=== PATIENT | female | born 1970 | race Hispanic/Latino ===

== ENCOUNTER 2016-08-05 15:51 | Emergency (ER) | payer MEDICAID ==
[2016-08-05 17:26] LABS: Basophils % (Auto) 0.7 % (0.0-1.8); Eosinophils % (Auto) 2.1 % (0.0-4.3); Hematocrit 46.1 % (30.3-42.9); Hemoglobin 15.2 gm/dl (10.1-14.3); Mean Corpuscular HGB Conc 33 % (30-34); Mean Corpuscular Hemoglobin 32 pg (28-32); Mean Corpuscular Volume 96 fl (79-97); Platelet Count 376 K/mm3 (140-440); Red Blood Count 4.78 M/mm3 (3.65-5.03); Red Cell Distribution Width 14.6 % (13.2-15.2); White Blood Count 12.6 K/mm3 (4.5-11.0)
[2016-08-05 17:47] LABS: Alanine Aminotransferase 23 units/L (7-56); Albumin 3.9 g/dL (3.9-5); Albumin/Globulin Ratio 1.2 %; Alkaline Phosphatase 93 units/L (35-129); BUN/Creatinine Ratio 5.71; Blood Urea Nitrogen 4 mg/dL (7-17); Calcium 9.2 mg/dL (8.4-10.2); Carbon Dioxide 26 mmol/L (22-30); Glucose 82 mg/dL (65-100); Lipase 17 units/L (13-60); Total Protein 7.1 g/dL (6.3-8.2)
[2016-08-05 17:48] LABS: Anion Gap 18 mmol/L; Chloride 99.6 mmol/L (98-107); Potassium 3.6 mmol/L (3.6-5.0); Sodium 140 mmol/L (137-145)
[2016-08-06 00:10] VITALS: BP 123/78
[2016-08-06] MEDS ORDERED: MORPHINE IM ONE (01:09)
--- NOTE | 2016-08-06 01:12 | Emergency Department Report ---
HPI - General Chief Complaint: Abdominal Pain Time Seen by Provider: 08/06/16 00:53 - HPI HPI: She is a 46-year-old female who presents to ED complaining of upper abdominal pain for the past 3 days. Patient describes pain as throbbing and sharp in nature. Patient states pain is intermittent throughout the day. She denies taking any medication. She admits mild burning with urination. Patient denies fevers/chills/nausea/vomiting/chest pain/shortness of breath/ diarrhea/constipation ED Past Medical Hx - Past Medical History Previous Medical History?: Yes Hx Heart Attack/AMI: Yes (stents x4) Hx Psychiatric Treatment: Yes (bipolar disorder) - Surgical History Past Surgical History?: Yes Additional Surgical History: hysterectomy; radial surgery - Social History Smoking Status: Current Some Day Smoker Substance Use Type: None - Medications Home Medications: Home Medications Medication Instructions Recorded Confirmed Last Taken Type Ibuprofen [Motrin 800 MG tab] 800 mg PO Q8HR PRN #30 tablet 08/06/16 Unknown Rx Mag Hydrox/Al Hydrox/Simeth 15 ml PO TID #355 ml 08/06/16 Unknown Rx [Maalox Advanced Suspension] Sulfamethoxazole/Trimethoprim 1 each PO BID #10 tablet 08/06/16 Unknown Rx [Bactrim DS TAB] ED Review of Systems ROS: Stated complaint: LT SIDE PAIN/ABD PAIN Other details as noted in HPI Constitutional: denies: chills, fever Eyes: denies: eye pain, eye discharge, vision change ENT: denies: ear pain, throat pain Respiratory: denies: cough, shortness of breath, wheezing Cardiovascular: denies: chest pain, palpitations Endocrine: no symptoms reported Gastrointestinal: denies: abdominal pain, nausea, diarrhea Genitourinary: denies: urgency, dysuria, discharge Musculoskeletal: denies: back pain, joint swelling, arthralgia Skin: denies: rash, lesions Neurological: denies: headache, weakness, paresthesias Psychiatric: denies: anxiety, depression Hematological/Lymphatic: denies: easy bleeding, easy bruising Physical Exam - Physical Exam Vital Signs: Vital Signs 08/05/16 08/05/16 08/06/16 17:05 23:37 00:08 Temperature 97.9 F 98.8 F Pulse Rate 70 80 Respiratory 16 20 20 Rate Blood Pressure 125/79 Blood Pressure 123/78 [Left] O2 Sat by Pulse 100 98 99 Oximetry Physical Exam: GENERAL: Alert and oriented x3, no apparent distress, Normal Gait, atraumatic. HEAD: Head is normocephalic and a-traumatic. EYES: Extra ocular muscles are intact. Pupils are equal, round, and reactive to light and accommodation. LUNGS: Symetrical with respiration, No wheezing, no rales or crackles, CTAB. HEART: S1, S2 present, regular rate and rhythm without murmur, no rubs, no gallops. Non tender to palpation ABDOMEN: No organomegaly was noted,Positive bowel sounds, soft, and non- distended. Tenderness to palpation of right and left upper quadrant. Nontender to palpation on all other Quadrants, NO CVA tenderness. SKIN: Warm and dry, No lesions, No ulceration or induration present. ED Course Vital Signs 08/05/16 08/05/16 08/06/16 17:05 23:37 00:08 Temperature 97.9 F 98.8 F Pulse Rate 70 80 Respiratory 16 20 20 Rate Blood Pressure 125/79 Blood Pressure 123/78 [Left] O2 Sat by Pulse 100 98 99 Oximetry ED Medical Decision Making - Lab Data Result diagrams: 08/05/16 17:14 08/05/16 17:14 - Radiology Data Radiology results: report reviewed, image reviewed FINAL REPORT PROCEDURE: US ABDOMEN COMPLETE TECHNIQUE: Real-time sonography in multiple planes of the abdomen was performed with image documentation. CPT 57383 HISTORY: Upper Quad abd pain COMPARISON: No prior studies are available for comparison. FINDINGS: Liver: Normal size and echotexture with no evidence of cystic or solid mass lesions. Gallbladder: Fluid filled. No gallstones, wall thickening, pericholecystic fluid, or sonographic Salazar's sign. Intrahepatic bile ducts: Normal caliber . Extrahepatic bile ducts: Normal caliber. Pancreas: Normal as visualized with suboptimal depiction of the pancreatic tail. Aorta: Visualized portions appear normal. IVC: Visualized portions appear normal. RIGHT kidney: Normal echotexture. No focal renal mass, calculus, or hydronephrosis. Length: 9.9cm. LEFT kidney: Normal echotexture. No focal renal mass, calculus, or hydronephrosis . Length: 10.3cm. Spleen: Normal size and echotexture. No focal lesions. Intraperitoneal fluid: None . Other: None . IMPRESSION: Normal Examination. Transcribed By: [facility] Dictated By: XIOMARA HDEZ MD Electronically Authenticated By: XIOMARA HDEZ MD Signed Date/Time: 08/06/16 0201 - Medical Decision Making 46-year-old female presents with gastroenteritis/abdominal pain of unknown origin ED course: Patient received 4 mg of morphine. Urinalysis, CBC, CMP, abdominal ultrasound ordered Urinalysis positive for hyaline casts and epithelial cells. We'll treat with antibiotics. CBC SHOWS MILD LEUKOCYTOSIS CMP, abdominal ultrasound on normal no acute findings. Discussed patient to keep her appointment for Sunday to see her Primary care Her vital signs are normal patient is in no acute distress patient reports much better. Discussed with patient that if worsening symptoms or new symptoms arise to return to ED. Discussed the medications prescribed. The patient is alert and oriented 3 she understands instructions given resting comfortably. Critical care attestation.: If time is entered above; I have spent that time in minutes in the direct care of this critically ill patient, excluding procedure time. ED Disposition Clinical Impression: Abdominal pain Qualifiers: Abdominal location: left upper quadrant Qualified Code(s): R10.12 - Left upper quadrant pain Disposition: TO HOME OR SELFCARE Is pt being admited?: No Does the pt Need Aspirin: No Condition: Stable Instructions: Soft Diet (ED), Regular Diet (ED), Abdominal Pain (ED) Additional Instructions: Keep your appointment with your primary care physician for Sunday. Soft diet Prescriptions: Ibuprofen [Motrin 800 MG tab] 800 mg PO Q8HR PRN #30 tablet PRN Reason: Pain Mag Hydrox/Al Hydrox/Simeth [Maalox Advanced Suspension] 15 ml PO TID #355 ml Sulfamethoxazole/Trimethoprim [Bactrim DS TAB] 1 each PO BID #10 tablet Referrals: PRIMARY CAREMD [Primary Care Provider] - 3-5 Days HORACIO TELLEZ MD [Referring] - 3-[address] [facility] [Outside] - 3-5 Days [facility] [Outside] - 3-5 Days [facility] [Outside] - 3-5 Days [facility] [Outside] - 3-5 Days Forms: Accompanied Note, Work/School Release Form(ED) Time of Disposition: 02:49
[2016-08-06 01:28] LABS: Bilirubin,Urine NEG (Negative); Blood,Urine NEG (Negative); Ketones,Urine NEG (Negative); Leukocyte Esterase,Urine NEG (Negative); Mucus,Urine 3+ /HPF; Nitrite,Urine NEG (Negative); Protein,Urine <15 mg/dL mg/dL (Negative); Urobilinogen,Urine < 2.0 mg/dL (<2.0)
--- NOTE | 2016-08-06 02:06 | Ultrasound Report ---
FINAL REPORT PROCEDURE: US ABDOMEN COMPLETE TECHNIQUE: Real-time sonography in multiple planes of the abdomen was performed with image documentation. CPT 66236 HISTORY: Upper Quad abd pain COMPARISON: No prior studies are available for comparison. FINDINGS: Liver: Normal size and echotexture with no evidence of cystic or solid mass lesions. Gallbladder: Fluid filled. No gallstones, wall thickening, pericholecystic fluid, or sonographic Salazar's sign. Intrahepatic bile ducts: Normal caliber . Extrahepatic bile ducts: Normal caliber. Pancreas: Normal as visualized with suboptimal depiction of the pancreatic tail. Aorta: Visualized portions appear normal. IVC: Visualized portions appear normal. RIGHT kidney: Normal echotexture. No focal renal mass, calculus, or hydronephrosis. Length: 9.9cm. LEFT kidney: Normal echotexture. No focal renal mass, calculus, or hydronephrosis . Length: 10.3cm. Spleen: Normal size and echotexture. No focal lesions. Intraperitoneal fluid: None . Other: None . IMPRESSION: Normal Examination.
== END 2016-08-06 03:00 | disposition home or self-care (01) ==
LOC: ED 15:51
DX: R10.12 Left upper quadrant pain (principal); I25.2 Old myocardial infarction; F31.9 Bipolar disorder, unspecified; F17.200 Nicotine dependence, unspecified, uncomplicated; Z90.710 Acquired absence of both cervix and uterus; Z91.048 Other nonmedicinal substance allergy status; Z88.8 Allergy status to other drugs, medicaments and biological substances
CPT/HCPCS: 36415; 76700; 80053; 81001; 83690; 85025; 96372; 99284; J2270

== ENCOUNTER 2016-08-08 19:30 | Emergency (ER) | payer MEDICAID ==
[2016-08-08 20:13] LABS: Urine Drugs of Abuse Note Disclamer
[2016-08-08 20:34] LABS: Basophils % (Auto) 0.3 % (0.0-1.8); Eosinophils % (Auto) 3.8 % (0.0-4.3); Hematocrit 44.4 % (30.3-42.9); Hemoglobin 14.7 gm/dl (10.1-14.3); Mean Corpuscular HGB Conc 33 % (30-34); Mean Corpuscular Hemoglobin 32 pg (28-32); Mean Corpuscular Volume 96 fl (79-97); Platelet Count 398 K/mm3 (140-440); Red Cell Distribution Width 14.9 % (13.2-15.2); White Blood Count 14.7 K/mm3 (4.5-11.0)
[2016-08-08 20:38] LABS: Bilirubin,Urine NEG (Negative); Blood,Urine NEG (Negative); Ketones,Urine NEG (Negative); Leukocyte Esterase,Urine NEG (Negative); Mucus,Urine 3+ /HPF; Nitrite,Urine NEG (Negative); Protein,Urine <15 mg/dL mg/dL (Negative); Urobilinogen,Urine < 2.0 mg/dL (<2.0)
[2016-08-08 20:47] LABS: Anion Gap 19 mmol/L; Blood Urea Nitrogen 10 mg/dL (7-17); Calcium 8.9 mg/dL (8.4-10.2); Carbon Dioxide 24 mmol/L (22-30); Chloride 101.8 mmol/L (98-107); Glucose 109 mg/dL (65-100); Potassium 3.3 mmol/L (3.6-5.0); Sodium 141 mmol/L (137-145)
[2016-08-08] MEDS ORDERED: XANAX PO ONE (20:55)
--- NOTE | 2016-08-08 20:55 | Emergency Department Report ---
ED Psych HPI - General Chief Complaint: Psych Stated Complaint: MH Time Seen by Provider: 08/08/16 20:41 Source: patient Mode of arrival: Ambulatory - History of Present Illness Initial Comments: 46 year old female with past medical history of cardiac stent 4 and bipolar disorder presents to the hospital complains of suicidal ideation and medication noncompliance. Patient states she has been out on her menstrual past 3 days because she missed her doctor's appointment. She is feeling really paranoid and feels like everyone is out to get her. She's also complains of auditory and visual hallucinations and increasing her anxiety and panic attacks. Patient chronically takes Xanax 1 mg 3 times a day in addition to other psychiatric medications. She was last seen here on August 05 for abdominal pain by Dr. Jones. Patient complaining the right upper quadrant pain that time. She had unremarkable labs except for mild leukocytosis and a normal abdominal ultrasound. Patient was discharged on Bactrim to cover for UTI and states she has been compliant with medication. She continues to have right upper quadrant , right lower quadrant abdominal pain radiating to the back. No complains of fever, nausea, vomiting, or diarrhea. Patient has had previous hysterectomy. - Related Data Home Medications Medication Instructions Recorded Confirmed Last Taken ALPRAZolam [Xanax TAB] 1 mg PO TID PRN 08/08/16 08/08/16 Unknown Paroxetine HCl [Paxil] 40 mg PO QHS 08/08/16 08/08/16 Unknown QUEtiapine [SEROquel] 600 mg PO QHS 08/08/16 08/08/16 Unknown Trazodone HCl [traZODone] 150 mg PO QHS 08/08/16 08/08/16 Unknown Allergies Allergy/AdvReac Type Severity Reaction Status Date / Time Iodinated Contrast Media - Allergy Unknown Verified 08/08/16 19:37 IV Dye nitroglycerin Allergy Hives Verified 08/05/16 17:05 ketorolac tromethamine AdvReac Hives Verified 08/08/16 19:37 [From Toradol] ED Review of Systems ROS: Stated complaint: MH Other details as noted in HPI Comment: All other systems reviewed and negative Other: Constitutional: No fevers chills Eyes: No eye pain visual changes ENT: No ear pain or throat pain Neck: Denies pain Respiratory: Denies cough wheezing shortness of breath Cardiovascular: Denies chest pain, palpitations, syncope GI: Per HPI : Mild dysuria Musculoskeletal: pain radiates to the back Skin: Denies rash, lesions, erythema Neurologic: Denies headache, numbness, weakness Psychiatric: Denies suicidal ideation, hallucinations ED Past Medical Hx - Past Medical History Hx Heart Attack/AMI: Yes (stents x4) Hx Psychiatric Treatment: Yes (bipolar disorder) - Surgical History Additional Surgical History: hysterectomy; radial surgery - Social History Smoking Status: Current Every Day Smoker Substance Use Type: None - Medications Home Medications: Home Medications Medication Instructions Recorded Confirmed Last Taken Type ALPRAZolam [Xanax TAB] 1 mg PO TID PRN 08/08/16 08/08/16 Unknown History Paroxetine HCl [Paxil] 40 mg PO QHS 08/08/16 08/08/16 Unknown History QUEtiapine [SEROquel] 600 mg PO QHS 08/08/16 08/08/16 Unknown History Trazodone HCl [traZODone] 150 mg PO QHS 08/08/16 08/08/16 Unknown History ED Physical Exam - General Limitations: No Limitations - Other Other exam information: General: No limitations, patient is alert in no acute distress Head exam: Atraumatic, normocephalic Eyes exam: Normal appearance ENT: Moist mucous membrane, normal oropharynx Neck exam: Normal inspection, full range of motion Respiratory exam: Clear to auscultation bilateral, no wheezes, rales, crackles Cardiovascular: Normal rate and rhythm, normal heart sounds Abdomen: Soft, nondistended, lower quadrant, right upper quadrant tenderness to palpation no rebound or guarding Extremity: Full range of motion normal inspection no deformity Back: Normal Inspection, full range of motion, no tenderness Neurologic: Alert, oriented x3, cranial nerves intact, no motor or sensory deficit Psychiatric: Depressed affect Skin: Warm, dry, intact ED Course Vital Signs 08/08/16 19:34 Temperature 98.5 F Pulse Rate 104 H Respiratory 20 Rate Blood Pressure 135/88 O2 Sat by Pulse 95 Oximetry ED Medical Decision Making - Lab Data Result diagrams: 08/08/16 20:16 08/08/16 20:16 Lab Results 08/08/16 08/08/16 08/08/16 Range/Units 19:40 19:40 20:16 WBC (4.5-11.0) K/mm3 RBC (3.65-5.03) M/mm3 Hgb (10.1-14.3) gm/dl Hct (30.3-42.9) % MCV (79-97) fl MCH (28-32) pg MCHC (30-34) % RDW (13.2-15.2) % Plt Count (140-440) K/mm3 Lymph % (Auto) (13.4-35.0) % [place] % (Auto) (0.0-7.3) % Eos % (Auto) (0.0-4.3) % Baso % (Auto) (0.0-1.8) % Lymph # (1.2-5.4) K/mm3 [place] # (0.0-0.8) K/mm3 Eos # (0.0-0.4) K/mm3 Baso # (0.0-0.1) K/mm3 Seg Neutrophils % (40.0-70.0) % Seg Neutrophils # (1.8-7.7) K/mm3 Sodium 141 (137-145) mmol/L Potassium 3.3 L (3.6-5.0) mmol/L Chloride 101.8 (98-107) mmol/L Carbon Dioxide 24 (22-30) mmol/L Anion Gap 19 mmol/L BUN 10 (7-17) mg/dL Creatinine 0.8 (0.7-1.2) mg/dL Estimated GFR > 60 ml/min BUN/Creatinine Ratio 12.50 % Glucose 109 H (65-100) mg/dL Calcium 8.9 (8.4-10.2) mg/dL Total Bilirubin (0.1-1.2) mg/dL Direct Bilirubin (0-0.2) mg/dL Indirect Bilirubin mg/dL AST (5-40) units/L ALT (7-56) units/L Alkaline Phosphatase (35-129) units/L Total Protein (6.3-8.2) g/dL Albumin (3.9-5) g/dL Albumin/Globulin Ratio % Lipase (13-60) units/L Urine Color Yellow (Yellow) Urine Turbidity Slightly-cloudy (Clear) Urine pH 5.0 (5.0-7.0) Ur Specific [place] 1.021 (1.003-1.030) Urine Protein <15 mg/dl (Negative) mg/dL Urine Glucose (UA) Neg (Negative) mg/dL Urine Ketones Neg (Negative) mg/dL Urine Blood Neg (Negative) Urine Nitrite Neg (Negative) Ur Reducing Substances Not Reportable Urine Bilirubin Neg (Negative) Urine Ictotest Not Reportable Urine Urobilinogen < 2.0 (<2.0) mg/dL Ur Leukocyte Esterase Neg (Negative) Urine WBC (Auto) 4.0 (0.0-6.0) /HPF Urine RBC (Auto) 4.0 (0.0-6.0) /HPF U Epithel Cells (Auto) 15.0 H (0-13.0) /HPF Urine Mucus 3+ /HPF Urine Opiates Screen Presumptive negative Urine Methadone Screen Presumptive negative Ur Barbiturates Screen Presumptive positive Ur Phencyclidine Scrn Presumptive negative Ur Amphetamines Screen Presumptive negative U Benzodiazepines Scrn Presumptive positive Urine Cocaine Screen Presumptive negative U Marijuana (THC) Screen Presumptive negative Drugs of Abuse Note Disclamer Plasma/Serum Alcohol (0-0.07) gm% 08/08/16 08/08/16 08/08/16 Range/Units 20:16 20:16 20:48 WBC 14.7 H (4.5-11.0) K/mm3 RBC 4.60 (3.65-5.03) M/mm3 Hgb 14.7 H (10.1-14.3) gm/dl Hct 44.4 H (30.3-42.9) % MCV 96 (79-97) fl MCH 32 (28-32) pg MCHC 33 (30-34) % RDW 14.9 (13.2-15.2) % Plt Count 398 (140-440) K/mm3 Lymph % (Auto) 22.4 (13.4-35.0) % [place] % (Auto) 7.6 H (0.0-7.3) % Eos % (Auto) 3.8 (0.0-4.3) % Baso % (Auto) 0.3 (0.0-1.8) % Lymph # 3.3 (1.2-5.4) K/mm3 [place] # 1.1 H (0.0-0.8) K/mm3 Eos # 0.6 H (0.0-0.4) K/mm3 Baso # 0.0 (0.0-0.1) K/mm3 Seg Neutrophils % 65.9 (40.0-70.0) % Seg Neutrophils # 9.7 H (1.8-7.7) K/mm3 Sodium (137-145) mmol/L Potassium (3.6-5.0) mmol/L Chloride (98-107) mmol/L Carbon Dioxide (22-30) mmol/L Anion Gap mmol/L BUN (7-17) mg/dL Creatinine (0.7-1.2) mg/dL Estimated GFR ml/min BUN/Creatinine Ratio % Glucose (65-100) mg/dL Calcium (8.4-10.2) mg/dL Total Bilirubin 0.20 (0.1-1.2) mg/dL Direct Bilirubin < 0.2 (0-0.2) mg/dL Indirect Bilirubin 0.0 mg/dL AST 14 (5-40) units/L ALT 19 (7-56) units/L Alkaline Phosphatase 79 (35-129) units/L Total Protein 7.2 (6.3-8.2) g/dL Albumin 4.1 (3.9-5) g/dL Albumin/Globulin Ratio 1.3 % Lipase 24 (13-60) units/L Urine Color (Yellow) Urine Turbidity (Clear) Urine pH (5.0-7.0) Ur Specific [place] (1.003-1.030) Urine Protein (Negative) mg/dL Urine Glucose (UA) (Negative) mg/dL Urine Ketones (Negative) mg/dL Urine Blood (Negative) Urine Nitrite (Negative) Ur Reducing Substances Urine Bilirubin (Negative) Urine Ictotest Urine Urobilinogen (<2.0) mg/dL Ur Leukocyte Esterase (Negative) Urine WBC (Auto) (0.0-6.0) /HPF Urine RBC (Auto) (0.0-6.0) /HPF U Epithel Cells (Auto) (0-13.0) /HPF Urine Mucus /HPF Urine Opiates Screen Urine Methadone Screen Ur Barbiturates Screen Ur Phencyclidine Scrn Ur Amphetamines Screen U Benzodiazepines Scrn Urine Cocaine Screen U Marijuana (THC) Screen Drugs of Abuse Note Plasma/Serum Alcohol < 0.01 (0-0.07) gm% - Radiology Data Radiology results: report reviewed CT abdomen and pelvis noncontrast: Fatty infiltration of the labia and mild hepatomegaly. Nonobstructive right renal calculus. Multi septated right ovarian cyst measuring 4.5 cm. Fat-containing anterior abdominal wall hernia. Transvaginal and pelvic ultrasound: Right ovarian cyst 3.9 cm. Left ovary not visualized. Uterus removed. - Medical Decision Making CT, recent abdominal ultrasound, and transvaginal/pelvic ultrasound did not reveal any acute infectious or surgical emergency. Incidental findings as noted. Will continue patient's Bactrim until completion. Will continue patient 's home psych meds. 1013 and transferred form signed for transfer. - Differential Diagnosis anxiety, depression, medication noncompliance, biliary colic, UTI Critical Care Time: No Critical care attestation.: If time is entered above; I have spent that time in minutes in the direct care of this critically ill patient, excluding procedure time. ED Disposition Clinical Impression: Suicidal ideation, Bipolar disorder, Paranoid, Psychoses, Noncompliance with medication regimen, Right ovarian cyst, Medical clearance for psychiatric admission Disposition: DC/TX-65 PSY HOSP/PSY UNIT Is pt being admited?: No Does the pt Need Aspirin: No Condition: Stable Time of Disposition: 02:56 (awaiting acceptance)
[2016-08-08 21:07] LABS: Alanine Aminotransferase 19 units/L (7-56); Albumin 4.1 g/dL (3.9-5); Albumin/Globulin Ratio 1.3 %; Alkaline Phosphatase 79 units/L (35-129); Lipase 24 units/L (13-60); Total Protein 7.2 g/dL (6.3-8.2)
[2016-08-08 21:22] LABS: Bilirubin,Direct < 0.2 mg/dL (0-0.2)
[2016-08-08] MEDS ORDERED: XANAX PO PRN (22:49)
[2016-08-08] MEDS ORDERED: K-DUR PO ONE (22:49)
[2016-08-08] MEDS ORDERED: PAXIL PO ONE (22:51)
[2016-08-08] MEDS ORDERED: DESYREL PO ONE (22:51)
--- NOTE | 2016-08-08 23:15 | Cat Scan Report ---
FINAL REPORT PROCEDURE: CT ABDOMEN PELVIS WO CON TECHNIQUE: Computerized axial tomography of the abdomen and pelvis was performed without intravenous contrast. This study is performed without intravascular contrast material and its sensitivity for abdominal and pelvic pathology, including neoplasms, inflammation, abscess, free fluid, thrombosis, arterial dissection and infarction, is reduced compared with a contrast enhanced study. HISTORY: ruq, rlq abd pain COMPARISON: No prior studies are available for comparison. FINDINGS: Visualized lower thorax: Thin-walled cyst in the posterior left lung base. Liver: Diffuse low attenuation of the liver is compatible with fatty infiltration. Liver measures 20 centimeters craniocaudal. Spleen: Normal size and attenuation. Gallbladder and biliary system: Gallbladder is present. No biliary ductal dilatation is identified. Pancreas: Normal. Adrenals: Normal. Kidneys: 3 millimeter nonobstructive calculus in the right kidney midpole. No hydronephrosis or ureteral calculi identified bilaterally. GI tract: The appendix is visualized and does not appear inflamed. There is no bowel obstruction or acute inflammation is seen. Lymph nodes and mesentery: Normal. Vasculature: Normal. Bladder: Normal. Reproductive organs: Uterus is not visualized. There is a multi septated right ovarian cystic mass, which measures up to 4.5 centimeters. Peritoneum: No free fluid. Musculoskeletal structures: No significant abnormality. Other: There is a fat containing lower anterior abdominal wall hernia, whose neck measures 19 millimeters transverse. IMPRESSION: Fatty infiltration of the liver and mild hepatomegaly. Nonobstructive right renal calculus. Multi septated right ovarian cyst, which measures up to 4.5 centimeters. Recommend follow-up with ultrasound to evaluate for solid components. Fat containing anterior abdominal wall hernia.
--- NOTE | 2016-08-09 01:44 | Ultrasound Report ---
FINAL REPORT PROCEDURE: US TRANSVAGINAL TECHNIQUE: Real-time transabdominal sonography in multiple planes of the pelvis was performed. The pelvic structures, especially the ovaries were not optimally visualized. Transvaginal sonography was then performed to better evaluate the structures and/or abnormalities described below with image documentation. CPT 83584 and 73022 HISTORY: r ovarian cyst COMPARISON: No prior studies are available for comparison. FINDINGS: The uterus has been removed. Right ovary size is 4.5 x 3 x 3.5 centimeters. There is a dominant cyst on the right ovary this measures 3.9 centimeters. The left ovary is not visualized on this study. No fluid in the lower pelvis. IMPRESSION: There is a cyst on the right ovary this measures up to 3.9 centimeters. The left ovary is not visualized on this study. The uterus has been removed.
--- NOTE | 2016-08-09 01:45 | Ultrasound Report ---
FINAL REPORT PROCEDURE: Ultrasound pelvis, transabdominal and transvaginal TECHNIQUE: Real-time transabdominal sonography in multiple planes of the pelvis was performed. The pelvic structures, especially the ovaries were not optimally visualized. Transvaginal sonography was then performed to better evaluate the structures and/or abnormalities described below with image documentation. CPT 87157 and 56017 HISTORY: r ovarian cyst COMPARISON: No prior studies are available for comparison. FINDINGS: The uterus has been removed. Right ovary size is 4.5 x 3 x 3.5 centimeters. There is a dominant cyst on the right ovary this measures 3.9 centimeters. The left ovary is not visualized on this study. No fluid in the lower pelvis. IMPRESSION: There is a cyst on the right ovary this measures up to 3.9 centimeters. The left ovary is not visualized on this study. The uterus has been removed.
[2016-08-09] MEDS ORDERED: K-DUR PO ONE (02:21)
[2016-08-09] MEDS ORDERED: DESYREL PO ONE (02:22)
[2016-08-09 07:47] VITALS: BP 144/83
[2016-08-09] MEDS ORDERED: BACTRIM DS PO SCH (10:00)
--- NOTE | 2016-08-09 16:44 | Consultation ---
History of Present Illness - Reason for Consult Consult date: 08/09/16 Reason for consult: follow up - Chief Complaint Chief complaint: "I need to sleep" 46 year old female seen in the ER for psychiatric evaluation. She presents complaining of suicidal ideation without plan past 4 days.Pt has history of Bipolar disorder with prior suicide attempt and recent hospitalization at [facility] 1 month ago. She ran out of medication 3 days ago. She endorses recent AVH and paranoia but states she wants to sleep and declines to speak further. Pt states that she would likely attempt to harm self if she does not receive help. Medications and Allergies Allergies Allergy/AdvReac Type Severity Reaction Status Date / Time Iodinated Contrast Media - Allergy Unknown Verified 08/08/16 19:37 IV Dye nitroglycerin Allergy Hives Verified 08/05/16 17:05 ketorolac tromethamine AdvReac Hives Verified 08/08/16 19:37 [From Toradol] Home Medications Medication Instructions Recorded Confirmed Last Taken Type ALPRAZolam [Xanax TAB] 1 mg PO TID PRN 08/08/16 08/08/16 Unknown History Paroxetine HCl [Paxil] 40 mg PO QHS 08/08/16 08/08/16 Unknown History QUEtiapine [SEROquel] 600 mg PO QHS 08/08/16 08/08/16 Unknown History Trazodone HCl [traZODone] 150 mg PO QHS 08/08/16 08/08/16 Unknown History Active Meds: Active Medications Alprazolam (Xanax) 1 mg PO TID PRN PRN Reason: Anxiety Paroxetine HCl (Paxil) 40 mg PO QHS [facility] Quetiapine Fumarate (Seroquel) 600 mg PO QHS [facility] Trazodone HCl (Desyrel) 150 mg PO QHS [facility] Trimethoprim/Sulfamethoxazole (Bactrim Ds) 1 each PO Q12HR [facility] Stop: 08/10/16 22:01 Last Admin: 08/09/16 10:10 Dose: 1 each Past psychiatric history - Past Medical History Past Medical History: other (obesity) - past Psychiatric treatment and history psychiatric treatment history: see HPI - Social History Social history: other (declines to discuss) Mental Status Exam - Vital signs Last Vital Signs Temp 98.0 F 08/09/16 07:46 Pulse 103 H 08/09/16 07:46 Resp 20 08/09/16 07:47 BP 144/83 08/09/16 07:46 Pulse Ox 100 08/09/16 07:47 - Exam Orientation: time, place, person Affect: depressed Mood: congruent with affect Thought content: paranoia, other (SI, no HI) Perceptions: auditory Speech: normal rate and pattern Concentration: unable to pay attention Motor activity: normal Level of consciousness: alert Memory: Intact Sleep Symptoms: Difficulty Falling Asleep Appetite: decreased Interaction: cooperative Results Result Diagrams: 08/08/16 20:16 08/08/16 20:16 Abnormal lab results 08/08/16 08/08/16 08/08/16 Range/Units 19:40 20:16 20:16 WBC 14.7 H (4.5-11.0) K/mm3 Hgb 14.7 H (10.1-14.3) gm/dl Hct 44.4 H (30.3-42.9) % [place] % (Auto) 7.6 H (0.0-7.3) % [place] # 1.1 H (0.0-0.8) K/mm3 Eos # 0.6 H (0.0-0.4) K/mm3 Seg Neutrophils # 9.7 H (1.8-7.7) K/mm3 Potassium 3.3 L (3.6-5.0) mmol/L Glucose 109 H (65-100) mg/dL U Epithel Cells (Auto) 15.0 H (0-13.0) /HPF All other labs normal. Assessment and Plan Assessment and plan: Impression: Suicidal ideation Bipolar disorder, cannot rule out mixed episode Recommendation: 1013 due to suicidal ideation. Refer for inpatient stabilization once cleared medically. Trazodone, seroquel, and xanax were restarted for her prior to this evaluation.
[2016-08-09] MEDS ORDERED: DESYREL PO SCH (22:00)
[2016-08-09] MEDS ORDERED: PAXIL PO SCH (22:00)
== END 2016-08-09 17:22 ==
LOC: EEVIPCON 19:30 → ED 19:30
DX: F31.9 Bipolar disorder, unspecified (principal); F22 Delusional disorders; N83.201 Unspecified ovarian cyst, right side; I25.2 Old myocardial infarction; F17.210 Nicotine dependence, cigarettes, uncomplicated; Z91.14 Patient's other noncompliance with medication regimen; Z91.041 Radiographic dye allergy status
CPT/HCPCS: 36415; 74176; 76830; 76856; 80048; 80074; 80307; 81001; 81025; 83690; 85025; 99285; G0480; 80320

== ENCOUNTER 2016-11-01 18:05 | Emergency (ER) | payer MEDICAID ==
[2016-11-01 20:03] VITALS: BP 143/85
== END 2016-11-01 20:45 | disposition left against medical advice (07) ==
LOC: ED 18:05
DX: M54.9 Dorsalgia, unspecified (principal); Z53.21 Procedure and treatment not carried out due to patient leaving prior to being seen by health care provider

== ENCOUNTER 2017-05-26 14:13 | Emergency (ER) | payer MEDICAID ==
[2017-05-26 16:01] LABS: Bacteria,Urine 1+ /HPF (Negative); Bilirubin,Urine NEG (Negative); Blood,Urine NEG (Negative); Color,Urine Yellow (Yellow); Protein,Urine <15 mg/dL mg/dL (Negative); Urobilinogen,Urine < 2.0 mg/dL (<2.0)
[2017-05-26 16:07] LABS: Amphetamine Screen,Urine PRESUMPTIVE NEGATIVE; Benzodiazepines Screen,Urine PRESUMPTIVE NEGATIVE; Cannabinoid Screen,Urine PRESUMPTIVE NEGATIVE; Cocaine Screen,Urine PRESUMPTIVE NEGATIVE; Methadone Screen,Urine PRESUMPTIVE NEGATIVE; Opiate Screen,Urine PRESUMPTIVE NEGATIVE
[2017-05-26 16:08] LABS: Basophils # (Auto) 0.1 K/mm3 (0.0-0.1); Basophils % (Auto) 0.9 % (0.0-1.8); Eosinophils # (Auto) 0.2 K/mm3 (0.0-0.4); Eosinophils % (Auto) 1.4 % (0.0-4.3); Hematocrit 46.2 % (30.3-42.9); Hemoglobin 15.3 gm/dl (10.1-14.3); Lymphocytes # (Auto) 2.7 K/mm3 (1.2-5.4); Lymphocytes % (Auto) 21.9 % (13.4-35.0); Mean Corpuscular HGB Conc 33 % (30-34); Mean Corpuscular Hemoglobin 33 pg (28-32); Mean Corpuscular Volume 99 fl (79-97); Monocytes # (Auto) 0.7 K/mm3 (0.0-0.8); Monocytes % (Auto) 5.7 % (0.0-7.3); Platelet Count 373 K/mm3 (140-440); Red Blood Count 4.68 M/mm3 (3.65-5.03); Red Cell Distribution Width 14.1 % (13.2-15.2)
--- NOTE | 2017-05-26 16:09 | Emergency Department Report ---
HPI - General Chief Complaint: Psych Time Seen by Provider: 05/26/17 15:46 - HPI HPI: Room 8 The patient is a 47-year-old female presenting with the chief complaint of suicidal ideation. The patient states she's felt suicidal for the past 2 days secondary to frequent "mental abuse." The patient states she didn't feeling "low and down." The patient states she has not had a plan or actively attempted to harm herself. The patient states 3-4 years ago she did attempt to cut her wrists. Location: Mental state Duration: 2 days Quality: Suicidal Severity: Severe Modifying factors: [see above] Context: [see above] Mode of transportation: [not driving] ED Past Medical Hx - Past Medical History Hx Heart Attack/AMI: Yes (stents x4) Hx Psychiatric Treatment: Yes (bipolar disorder) - Surgical History Past Surgical History?: No Additional Surgical History: hysterectomy - Family History Family history: no significant - Social History Smoking Status: Current Every Day Smoker (1/3 pack per day) Substance Use Type: None (denies illicit drug use) - Medications Home Medications: Home Medications Medication Instructions Recorded Confirmed Last Taken Type ALPRAZolam [Xanax TAB] 1 mg PO TID PRN 08/08/16 08/08/16 Unknown History Paroxetine HCl [Paxil] 40 mg PO QHS 08/08/16 08/08/16 Unknown History QUEtiapine [SEROquel] 600 mg PO QHS 08/08/16 08/08/16 Unknown History Trazodone HCl [traZODone] 150 mg PO QHS 08/08/16 08/08/16 Unknown History ED Review of Systems ROS: Stated complaint: SUICIDE THOUGHTS Other details as noted in HPI Psychiatric: anxiety, depression, suicidal thoughts Physical Exam - Physical Exam Vital Signs: Vital Signs 05/26/17 15:29 Temperature 98.1 F Pulse Rate 64 Respiratory 16 Rate Blood Pressure 105/63 O2 Sat by Pulse 99 Oximetry Physical Exam: GENERAL: The patient is well-developed well-nourished female sitting on stretcher not appearing to be in acute distress. [] HEENT: Normocephalic. Atraumatic. Extraocular motions are intact. Patient has moist mucous membranes. NECK: Supple. Trachea midline CHEST/LUNGS: Clear to auscultation. There is no respiratory distress noted. HEART/CARDIOVASCULAR: Regular. There is no tachycardia. There is no gallop rub or murmur. ABDOMEN: Abdomen is soft, nontender. Patient has normal bowel sounds. There is no abdominal distention. SKIN: There is no rash. There is no edema. There is no diaphoresis. NEURO: The patient is awake, alert, and oriented. The patient is cooperative. The patient has normal speech MUSCULOSKELETAL: There is no evidence of acute injury. ED Course Vital Signs 05/26/17 15:29 Temperature 98.1 F Pulse Rate 64 Respiratory 16 Rate Blood Pressure 105/63 O2 Sat by Pulse 99 Oximetry ED Medical Decision Making - Lab Data Result diagrams: 05/26/17 15:43 05/26/17 15:43 Laboratory Results - last 72 hr 05/26/17 05/26/17 05/26/17 15:40 15:40 15:43 WBC RBC Hgb Hct MCV MCH MCHC RDW Plt Count Lymph % (Auto) [place] % (Auto) Eos % (Auto) Baso % (Auto) Lymph # [place] # Eos # Baso # Seg Neutrophils % Seg Neutrophils # Sodium Potassium Chloride Carbon Dioxide Anion Gap BUN Creatinine Estimated GFR BUN/Creatinine Ratio Glucose Calcium Urine Color Yellow Urine Turbidity Clear Urine pH 6.0 Ur Specific [place] 1.008 Urine Protein <15 mg/dl Urine Glucose (UA) Neg Urine Ketones Neg Urine Blood Neg Urine Nitrite Neg Urine Bilirubin Neg Urine Urobilinogen < 2.0 Ur Leukocyte Esterase Neg Urine WBC (Auto) 1.0 Urine RBC (Auto) 2.0 U Epithel Cells (Auto) 2.0 Urine Bacteria (Auto) 1+ Salicylates < 0.3 L Urine Opiates Screen Presumptive negative Urine Methadone Screen Presumptive negative Acetaminophen Ur Barbiturates Screen Presumptive negative Ur Phencyclidine Scrn Presumptive negative Ur Amphetamines Screen Presumptive negative U Benzodiazepines Scrn Presumptive negative Urine Cocaine Screen Presumptive negative U Marijuana (THC) Screen Presumptive negative Drugs of Abuse Note Disclamer Plasma/Serum Alcohol 05/26/17 05/26/17 05/26/17 15:43 15:43 15:43 WBC RBC Hgb Hct MCV MCH MCHC RDW Plt Count Lymph % (Auto) [place] % (Auto) Eos % (Auto) Baso % (Auto) Lymph # [place] # Eos # Baso # Seg Neutrophils % Seg Neutrophils # Sodium 133 L Potassium 4.0 Chloride 99.8 Carbon Dioxide 26 Anion Gap 11 BUN 9 Creatinine 0.6 L Estimated GFR > 60 BUN/Creatinine Ratio 15 Glucose 110 H Calcium 9.0 Urine Color Urine Turbidity Urine pH Ur Specific [place] Urine Protein Urine Glucose (UA) Urine Ketones Urine Blood Urine Nitrite Urine Bilirubin Urine Urobilinogen Ur Leukocyte Esterase Urine WBC (Auto) Urine RBC (Auto) U Epithel Cells (Auto) Urine Bacteria (Auto) Salicylates Urine Opiates Screen Urine Methadone Screen Acetaminophen < 5.0 L Ur Barbiturates Screen Ur Phencyclidine Scrn Ur Amphetamines Screen U Benzodiazepines Scrn Urine Cocaine Screen U Marijuana (THC) Screen Drugs of Abuse Note Plasma/Serum Alcohol < 0.01 05/26/17 15:43 WBC 12.4 H RBC 4.68 Hgb 15.3 H Hct 46.2 H MCV 99 H MCH 33 H MCHC 33 RDW 14.1 Plt Count 373 Lymph % (Auto) 21.9 [place] % (Auto) 5.7 Eos % (Auto) 1.4 Baso % (Auto) 0.9 Lymph # 2.7 [place] # 0.7 Eos # 0.2 Baso # 0.1 Seg Neutrophils % 70.1 H Seg Neutrophils # 8.7 H Sodium Potassium Chloride Carbon Dioxide Anion Gap BUN Creatinine Estimated GFR BUN/Creatinine Ratio Glucose Calcium Urine Color Urine Turbidity Urine pH Ur Specific [place] Urine Protein Urine Glucose (UA) Urine Ketones Urine Blood Urine Nitrite Urine Bilirubin Urine Urobilinogen Ur Leukocyte Esterase Urine WBC (Auto) Urine RBC (Auto) U Epithel Cells (Auto) Urine Bacteria (Auto) Salicylates Urine Opiates Screen Urine Methadone Screen Acetaminophen Ur Barbiturates Screen Ur Phencyclidine Scrn Ur Amphetamines Screen U Benzodiazepines Scrn Urine Cocaine Screen U Marijuana (THC) Screen Drugs of Abuse Note Plasma/Serum Alcohol - Differential Diagnosis suicidal ideation Critical care attestation.: If time is entered above; I have spent that time in minutes in the direct care of this critically ill patient, excluding procedure time. ED Disposition Clinical Impression: Suicidal ideation Disposition: [id number]/TX-65 PSY HOSP/PSY UNIT Is pt being admited?: No Does the pt Need Aspirin: No Condition: Serious Time of Disposition: 16:22 (awaiting acceptance)
[2017-05-26] MEDS ORDERED: VISTARIL PO PRN (16:21)
[2017-05-26 16:23] LABS: BUN/Creatinine Ratio 15; Blood Urea Nitrogen 9 mg/dL (7-17); Hemolysis Index 1
[2017-05-26] MEDS ORDERED: DESYREL PO ONE ×2 (20:11→20:12)
[2017-05-27] MEDS ORDERED: XANAX ONE (10:21)
--- NOTE | 2017-05-27 10:34 | Consultation ---
History of Present Illness - Reason for Consult Consult date: 05/27/17 Reason for consult: Mental Health Evaluation Requesting physician: YOLANDA RICO - Chief Complaint Chief complaint: "I am depressed and don't know what to do" - History of Present Psychiatric Illness 47-year-old female presenting with the chief complaint of suicidal ideation. Today the patient is calm, but anxious during the assessment. She stated being suicidal for several days. She stated that her nephew of cancer recently. She stated that she cannot cope with that along with other life stressors. She stated that a skilled nursing rep may have "kicked her out," but isn't sure. She stated that her life is a "mess" and endorsed SI's when asked. She cannot confirm or deny a suicide plan. She acknowledged prior suicide attempts in the past. She denies HI's and AVH's. She denies any manic episodes in the past. She rate her depression 7/10, with 10 being the worse. She denies a poor appetite, but admitted to initiating sleep. She stated that she takes Trazodone, Cymbalta , and Xanax as needed. She stated that she last took Xanax 3 days ago. She denies recreational drug use and alcohol consumption (etoh). Medications and Allergies Allergies Allergy/AdvReac Type Severity Reaction Status Date / Time Iodinated Contrast- Oral and Allergy Unknown Verified 11/01/16 20:03 IV Dye nitroglycerin Allergy Hives Verified 11/01/16 20:03 ketorolac tromethamine AdvReac Hives Verified 11/01/16 20:03 [From Toradol] Home Medications Medication Instructions Recorded Confirmed Last Taken Type ALPRAZolam [Xanax TAB] 1 mg PO TID PRN 08/08/16 05/27/17 Unknown History QUEtiapine [SEROquel] 600 mg PO QHS 08/08/16 05/27/17 Unknown History Trazodone HCl [traZODone] 150 mg PO QHS 08/08/16 05/27/17 Unknown History Active Meds: Active Medications Alprazolam (Xanax) 1 mg PO TID [facility] Hydroxyzine Pamoate (Vistaril) 50 mg PO Q6H PRN PRN Reason: Anxiety Last Admin: 05/26/17 18:07 Dose: 50 mg Miscellaneous Medication (Trazodone Hcl [Trazodone]) 150 mg PO QHS [facility] Quetiapine Fumarate (Seroquel) 600 mg PO QHS [facility] Past psychiatric history - Past Medical History Past Medical History: acute AL Past Surgical History: hysterectomy - past Psychiatric treatment and history Psych: Depression psychiatric treatment history: Multiple inpatient psy settings. She denies a fam psy hx. - Social History Social history: other (Reside at a skilled nursing) Mental Status Exam - Vital signs Last Vital Signs Temp 97.6 F 05/27/17 07:58 Pulse 81 05/27/17 07:58 Resp 20 05/27/17 07:58 BP 143/80 05/27/17 07:58 Pulse Ox 96 05/27/17 07:58 - Exam Narrative exam: MSE: Appearance: calm, cooperative Behavior: regular eye contact Speech: regular rate and tone Mood: "depressed an anxious" Affect: flat Thought Process: circumstantial Thought Content: denies HI's and AVH's Motor Activity: sitting up in bed Cognition: A/O x3 Insight: variable Judgment: variable Results Result Diagrams: 05/26/17 15:43 05/26/17 15:43 Abnormal lab results 05/26/17 05/26/17 05/26/17 Range/Units 15:43 15:43 15:43 WBC (4.5-11.0) K/mm3 Hgb (10.1-14.3) gm/dl Hct (30.3-42.9) % MCV (79-97) fl MCH (28-32) pg Seg Neutrophils % (40.0-70.0) % Seg Neutrophils # (1.8-7.7) K/mm3 Sodium 133 L (137-145) mmol/L Creatinine 0.6 L (0.7-1.2) mg/dL Glucose 110 H (65-100) mg/dL Salicylates < 0.3 L (2.8-20.0) mg/dL Acetaminophen < 5.0 L (10.0-30.0) ug/mL 05/26/17 Range/Units 15:43 WBC 12.4 H (4.5-11.0) K/mm3 Hgb 15.3 H (10.1-14.3) gm/dl Hct 46.2 H (30.3-42.9) % MCV 99 H (79-97) fl MCH 33 H (28-32) pg Seg Neutrophils % 70.1 H (40.0-70.0) % Seg Neutrophils # 8.7 H (1.8-7.7) K/mm3 Sodium (137-145) mmol/L Creatinine (0.7-1.2) mg/dL Glucose (65-100) mg/dL Salicylates (2.8-20.0) mg/dL Acetaminophen (10.0-30.0) ug/mL All other labs normal. Assessment and Plan Assessment and plan: Impression: MDD, Severe type. Hx of AMANDA. Today the patient is calm, but anxious during the assessment. The patient endorses SI's. DDx: R/O Bipolar DO Recommendation/Plan: Continue 1013 with placement to inpatient psy services. Start Cymbulta 60 mg PO daily for depression, Trazodone 50 mg PO HS PRN for sleep, and Xanax 0.5 mg PO Q8hrs PRN for acute anxiety. Discussed possible suicidality/medication induced kiarra with patient reference antidepressants.
[2017-05-27] MEDS ORDERED: CYMBALTA PO ONE (11:00)
[2017-05-27] MEDS ORDERED: XANAX PO SCH (11:00)
[2017-05-27] MEDS: CYMBALTA PO SCH (12:01)
[2017-05-27] MEDS: XANAX PO PRN (20:08)
[2017-05-27] MEDS ORDERED: NON-FORMULARY (Trazodone Hcl [Trazodone] 150 MG) PO SCH (22:00)
[2017-05-27] MEDS ORDERED: DESYREL PO PRN (22:00)
[2017-05-28] MEDS: XANAX PO PRN (05:42)
[2017-05-28] MEDS: CYMBALTA PO SCH (10:00)
[2017-05-28 11:16] VITALS: BP 128/81
[2017-05-28] MEDS ORDERED: XANAX PO ONE (12:00)
--- NOTE | 2017-05-28 13:02 | Progress Note ---
Subjective - Reason for Consult Consult date: 05/28/17 Reason for consult: Psychiatry Follow-up - Chief Complaint Chief complaint: "I am anxious" 47-year-old female presenting with the chief complaint of suicidal ideation. Today the patient is calm, but anxious during the assessment. She stated that her anxiety was 10/10 with 10 being the worse. She could not confirm or deny SI when asked. She stated that her main issue is possibly being homeless once discharged. She denies HI's and AVH's. She denies any side effects of her medication. Mental Status Exam - Vital signs Last Vital Signs Temp 98.3 F 05/28/17 09:28 Pulse 94 H 05/28/17 11:15 Resp 18 05/28/17 11:15 BP 128/81 05/28/17 11:15 Pulse Ox 97 05/28/17 11:15 - Exam Narrative exam: MSE: Appearance: calm, cooperative Behavior: regular eye contact Speech: regular rate and tone Mood: "anxious" Affect: flat Thought Process: circumstantial Thought Content: denies HI's and AVH's, cannot confirm or deny SI's Motor Activity: sitting up in bed Cognition: A/O x3 Insight: variable Judgment: variable Assessment and Plan Impression: MDD, Severe type. Hx of AMANDA. Today the patient is calm, but anxious during the assessment. The patient cannot confirm or deny SI's. DDx: R/O Bipolar DO Recommendation/Plan: Continue 1013 with placement to [facility] today. Continue Cymbalta 60 mg PO daily for depression, Trazodone 50 mg PO HS PRN for sleep, and Xanax 0.5 mg PO Q8hrs PRN for acute anxiety. Discussed possible suicidality/medication induced kiarra with patient reference antidepressants. Xanax 0.25 mg PO once for acute anxiety.
== END 2017-05-28 12:16 ==
LOC: ED 14:13
DX: F31.9 Bipolar disorder, unspecified (principal); I25.2 Old myocardial infarction; F17.200 Nicotine dependence, unspecified, uncomplicated
CPT/HCPCS: 36415; 80048; 80307; 81001; 85025; 99285; G0480; 80320; Q0177